=== PATIENT | male | born 1955 | race Caucasian/White ===

== ENCOUNTER 2017-02-13 07:00 | Day surgery (SDC) | payer BC ==
[2017-02-12 12:48] VITALS: BMI 25.4
[~2017-02-13 07:00] MED LIST: FLU VACC QS2017-18 36 mo. & older 0.5 ML SYRINGE IM ONE
[2017-02-13 08:55] VITALS: BP 106/72; TEMP 97.2
[2017-02-13 09:58] LABS: CSF, Glucose 56 mg/dl (40-70)
--- OUTSIDE RECORDS SUMMARY | 2017-02-13 10:53 | XMS | Clinical Summary ---
:1955 Author Organization [facility] Address [address] [place] [address] Phone Care Team Providers Name Role Phone Carlos Ny Primary Care Provider tel Allergies No Known Allergies Current Medications Prescription Sig. Disp. Refills Start Date End Date Status simvastatin (ZOCOR) Take 20 mg by Active 20 MG tablet mouth nightly. GLUCOSAMINE/D3/BOSWEL Take by mouth. Active SONJA ANNE-MARIE (OSTEO BI-FLEX, 5-LOXIN, ORAL) MULTIVIT-MIN/FA/LYCOP Take by mouth. Active EN/LUTEIN (CENTRUM SILVER MEN ORAL) UBIDECARENONE (COQ-10 Take by mouth. Active ORAL) ASCORBATE CALCIUM Take by mouth. Active (VITAMIN C ORAL) aspirin (ECOTRIN) 81 Take 81 mg by Active MG enteric coated mouth daily. tablet cyanocobalamin 500 Take 500 mcg by Active MCG tablet mouth daily. tadalafil (CIALIS, Take 20 mg by Active ADCIRCA) 20 mg tablet mouth daily as needed. tadalafil (CIALIS) 5 Take 5 mg by Active MG tablet mouth daily as needed for erectile dysfunction. oxybutynin XL Take 1 tablet (10 30 tablet 11 10/30/2016 10/30/2017 Active (DITROPAN-XL) 10 MG mg total) by 24 hr tablet mouth daily. tadalafil (CIALIS, Take 1 tablet (5 30 tablet 6 01/28/2017 02/27/2017 Active ADCIRCA) 5 MG tablet mg total) by mouth daily as needed for erectile dysfunction for up to 30 days. tadalafil (CIALIS, Take 1 tablet (5 8 tablet 6 01/23/2017 01/31/2017 ADCIRCA) 5 MG tablet mg total) by mouth daily as needed for erectile dysfunction for up to 8 days. Active Problems Problem Noted Date Prostate cancer 09/09/2016 Encounters Date Type Specialty Care Team Description 01/29/2017 Telephone Urology Dulce Mckeon MA 01/28/2017 Telephone Urology Dulce Mckeon MA 01/23/2017 Telephone Urology Dulce Mckeon MA 11/18/2016 Office Visit General Surgery Joseph Mcdermott Visit for wound check MD Steven (Primary Dx) from Last 3 Months Family History Medical History Relation Name Comments Heart disease Father Hypertension Mother Melanoma Mother Relation Name Status Comments Father Mother Alive Social History Tobacco Use Types Packs/Day Years Used Date Former Smoker Quit: 1979 Smokeless Tobacco: Former User Quit: 1982 Alcohol Use Drinks/Week oz/Week Comments Yes 04/07/2007- last drink Sex Assigned at Date Recorded Not on file Last Filed Vital Signs Vital Sign Reading Time Taken Blood Pressure 133/64 09/20/2016 4:04 PM CDT Pulse 93 09/20/2016 4:04 PM CDT Temperature 37.2 C (99 F) 09/20/2016 4:04 PM CDT Respiratory Rate 19 09/20/2016 4:04 PM CDT Oxygen Saturation 96% 09/20/2016 4:04 PM CDT Inhaled Oxygen Concentration - - Weight 90.7 kg (200 lb) 11/18/2016 5:29 PM CDT Height 182.9 cm (6') 11/18/2016 5:29 PM CDT Body Mass Index 27.12 11/18/2016 5:29 PM CDT Plan of Treatment Date Type Specialty Care Team Description 03/05/2017 Office Visit Urology Tomas Horvath MD [address] [facility] [address] [place] [address] [phone] Health Maintenance Due Date Last Done Comments COLONOSCOPY 08/10/2007 INFLUENZA VACCINE 11/18/2016 01/20/2015, 02/13/2014, 02/15/2013 Implants Implanted Type Area [place] [employer] Device Expiration Model / Identifier Date Serial / Lot Sepramesh Ip 3x6" - [id number] GRAFTS N/A: Louise CHRISTIANSON 04/16/2017 [id number] / Implanted:Qty: 1 on 09/18/2016 by Tomas Horvath MD Abdomen COMPANY / [id number] Clip Ligtng Hem-[employer]-Ward Endoscpc Aplr [facility] - [id number] Surgical N/A: N/A WECK CLOSURE [id number] / Implanted:09/18/2016 (Quantity not on file) Implants; SYSTEMS / Expanders; Extenders; Surgical Wires Clip Ligtng [employer]-W[employer] Endoscpc Aplr [facility]g - [id number] Surgical N/A: N/A WECK CLOSURE [id number] / Implanted:09/18/2016 (Quantity not on file) Implants; SYSTEMS / Expanders; Extenders; Surgical Wires Amniofix Amniotic Membrane Allograft - [id number] - [id number] Urological N/A: N/A [employer] 05/21/2021 APS [id number] / Implanted:Qty: 1 on 09/18/2016 by Tomas Horvath MD Implants or INC [id number] / Sets [id number] Results Not on filefrom Last 3 Months Insurance Payer Benefit Plan / Group Subscriber ID Type Phone Address BCBS BCBS CHOICE PPO/[employer] EMPL PPO [id number] PPO
--- NOTE | 2017-02-13 12:53 | RAD ---
LUMBAR PUNCTURE WITH FLUOROSCOPIC GUIDANCE: Date: 02/13/17 HISTORY: Neuropathy. COMPARISON: None. FINDINGS: Technically successful lumbar puncture. A total of 16 mm of clear CSF was collected. Opening pressur e was 16 mm of water. Technically successful lumbar puncture. Patient's back was evaluated. The L2-L3 level was deemed cassy ropriate. Skin was prepped and draped in the sterile fashion. 1% lidocaine, buffered with sodium bic arbonate, was used for local anesthesia. Under fluoroscopic guidance, a 22 gauge spinal needle was a dvanced in the CSF space. Opening pressure was 16 mm of water. A total of 16 mL of clear CSF was col lected. The patient tolerated the procedure well. No immediate or postprocedure complications. EXPOSURE: 0.4 minutes. 155.3 mGy*cm\S\2. IMPRESSION: Technically successful lumbar puncture. POS: CORBIN
== END 2017-02-13 10:25 | disposition home or self-care (01) ==
LOC: RAD 07:00
PROVIDERS: ATTEND Radiology Diagnostic Radiology
PROC: 009U3ZX Drainage of Spinal Canal, Percutaneous Approach, Diagnostic (ICD-10-PCS; principal; 2017-02-13)
DX: G60.9 Hereditary and idiopathic neuropathy, unspecified (principal)
CPT/HCPCS: 62270; 82945; 84157; 84165; 89051

== ENCOUNTER 2017-03-27 07:31 | Outpatient (CLI) | payer BC ==
--- NOTE | 2017-03-27 08:59 | CT ---
CT OF THE ABDOMEN AND PELVIS WITH AND WITHOUT IV CONTRAST: Date: 03/27/17 INDICATION: Prostate restaging examination after prostate surgery. Patient also has a history of prior hernia rep air. TECHNIQUE: Multiple CT images were obtained of the abdomen and pelvis with and without IV contrast utilizing a C T urogram protocol. FINDINGS: There is postsurgical change of an anterior abdominal wall hernia repair and prostate resection. No pathologically enlarged lymph nodes are evident. No renal or ureteral calculus is noted. No gross urothelial lesion is identified. No solid renal lesi on is identified. There are mild vascular calcifications involving the abdominopelvic vasculature. There is some mild subsegmental volume loss within both lung bases likely related to supine positioni ng and diminished inspiration. The liver, spleen, pancreas, and adrenal glands are normal appearing. The rectum and perirectal soft tissues appear within normal limits. There is a mild amount of retaine d stool within the colon. There is a normal appendix in the right lower quadrant of the abdomen. Smal l bowel is of normal caliber. Osseous Structures: There are small suspected bone islands within the left pubic body and left superior pubic ramus. Ther e is scattered degenerative change and osteoarthritic change. No suspicious focal osseous lesion is d emonstrated. IMPRESSION: 1. No evidence for regional or metastatic disease within the abdomen or pelvis. 2. Postsurgical change of anterior abdominal wall hernia repair and prostatectomy. 3. No gross urothelial lesion or solid renal lesion is demonstrated. 4. Small sclerotic lesions within the left pubic body and left superior pubic ramus demonstrate some densities similar to cortex with alta thorn edges is most suspicious for small bone islands. No susp icious osteoblastic lesion is evident. POS: PENNY
[2017-03-27] MEDS ORDERED: Iopamidol 370 76% 100 ML VIAL ONE (11:31)
== END 2017-03-27 07:32 | disposition home or self-care (01) ==
LOC: CT 07:31
PROVIDERS: ATTEND Radiology Radiation Oncology
DX: C61 Malignant neoplasm of prostate (principal); M89.9 Disorder of bone, unspecified; Z98.890 Other specified postprocedural states; Z90.79 Acquired absence of other genital organ(s)
CPT/HCPCS: 74178

== ENCOUNTER 2017-04-07 10:00 | Outpatient (CLI) | payer BC ==
--- NOTE | 2017-04-07 14:38 | NM ---
RADIONUCLIDE BONE SCAN: History: Prostate cancer. Initial staging. FINDINGS: Heterogeneous uptake of radiotracer is present throughout the skeleton. Uptake at the shoulders, ster noclavicular joints, hips, knees and feet have the appearance of degenerative changes. Urinary bladde r predominately obscures the pubic symphysis. Photopenic defect at the mouth has the appearance of de ntures. IMPRESSION: 1. Osteoarthritic changes. No scintigraphic evidence of skeletal metastases. POS: PENNY
== END 2017-04-07 10:01 | disposition home or self-care (01) ==
LOC: NM 10:00
PROVIDERS: ATTEND Radiology Radiation Oncology
DX: C61 Malignant neoplasm of prostate (principal); M19.91 Primary osteoarthritis, unspecified site
CPT/HCPCS: 78306; A9503

== ENCOUNTER 2018-01-15 10:16 | Outpatient (CLI) | payer BC | END 2018-01-15 10:17 | disposition home or self-care (01) | LOC: CTENTCT 10:16 | PROVIDERS: ATTEND Specialist | DX: J01.81 Other acute recurrent sinusitis (principal) | CPT/HCPCS: 70486 ==

== ENCOUNTER 2018-03-19 09:21 | Day surgery (SDC) | payer BC ==
[2018-03-18 08:44] VITALS: BMI 29.8
[2018-03-19] MEDS ORDERED: Oxymetazoline HCl 0.05% ( 15 ML ) ONE ×2 (09:54→10:17)
[2018-03-19] MEDS ORDERED: Fentanyl 100 MCG/2 ML VIAL ONE ×3 (10:15→12:02)
[2018-03-19] MEDS ORDERED: Lidocaine 1% w/Epinephrine 1:100K 30 ML VIAL ONE (10:16)
[2018-03-19] MEDS ORDERED: Bacitracin Zinc Ointment 30 gm TUBE ONE (10:17)
[2018-03-19] MEDS ORDERED: PROPOFOL 200 MG/20 ML VIAL ONE (11:15)
[2018-03-19] MEDS ORDERED: Glycopyrrolate 0.2 MG/ML 5 ML SYRINGE ONE (11:15)
[2018-03-19] MEDS ORDERED: ePHEDrine/0.9% NaCl/PF SYRINGE 50 mg/10 ml ONE (11:15)
[2018-03-19] MEDS ORDERED: Dexamethasone 20 MG/5 ML VIAL ONE (11:15)
[2018-03-19] MEDS ORDERED: Ondansetron PF 4 MG/2 ML Vial ONE (11:15)
[2018-03-19] MEDS ORDERED: Lidocaine 1% PF 5 ML VIAL ONE (11:15)
--- NOTE | 2018-03-19 22:43 | EKG ---
Test Reason : PREOP Blood Pressure : / mmHG Vent. Rate : 071 BPM Atrial Rate : 071 BPM P-R Int : 162 ms QRS Dur : 102 ms QT Int : 408 ms P-R-T Axes : 023 000 015 degrees QTc Int : 443 ms Normal sinus rhythm Minimal voltage criteria for LVH, may be normal variant Borderline ECG When compared with ECG of 14-JUN-2004 22:16, No significant change was found Confirmed by KEITH LANGSTON, . SLuiz (4) on 03/19/2018 10:43:03 PM Referred By: MATTHEW Confirmed By:DR. Francisco PARKER MD
--- NOTE | 2018-03-22 08:42 | OP ---
DATE OF PROCEDURE: 03/19/2018 PREOPERATIVE DIAGNOSES: Deviated septum, hypertrophic inferior turbinates, chronic sinusitis, recurrent sinusitis, facial pain. POSTOPERATIVE DIAGNOSES: Deviated septum, hypertrophic inferior turbinates, chronic sinusitis, recurrent sinusitis, facial pain. PROCEDURES PERFORMED: Bilateral nasal endoscopy with maxillary antrostomy, bilateral nasal endoscopy with total ethmoidectomy, bilateral nasal endoscopy with frontal sinusotomy, bilateral nasal endoscopy with sphenoidotomy, septoplasty, and bilateral nasal endoscopy with submucosal resection of inferior turbinates. DESCRIPTION OF PROCEDURE: After consent was obtained, the patient was identified, brought to the operating room, and placed on the operating room table in the supine position. Consent was obtained, notifying the patient of the possibility of additional infections, bleeding, brain injury, and eye/orbital injury. The patient was placed on the operating room table, and general endotracheal anesthesia and intravenous access was obtained. The patient was then positioned, prepped and draped for endoscopic sinus surgery. Nasal preparation included trimming nasal vestibular hairs and spraying in topical Afrin. We then placed Afrin topical solution on nasal pledgets and strategically located them intranasally. The perinasal mucosa was injected with 1% lidocaine with 1:100,000 epinephrine in the submucoperichondrial plane of the septum, lateral nasal wall, and anterior to the uncinate. The patient was then prepped and draped in a sterile fashion and positioned for endoscopic sinus surgery. The uncinate was then identified and the extent of the uncinate was appreciated by out-fracturing the uncinate with the ball-tip probe. We then used the sickle blade to disarticulate the uncinate from the lateral nasal wall. This was then removed with straight biting and upbiting punches with the remaining shrouds of mucosa and bony septum removed with the micro-debrider. The natural os of the maxillary sinus was then identified and enlarged with the maxillary punches and back biting forceps. The anterior face of the ethmoid bulla was entered and with the micro-debrider, dissection continued posteriorly to the ground lamella. The limits of dissection included the insertion of the middle turbinate, medial orbital wall, and base of skull. We similarly identified the frontal recess and removed shrouds of bone and debris in that region to obtain patency into the agger nasi region and frontal recess. We then entered the ground lamella and its anteroinferior aspect and proceeded posteriorly, opening the posterior ethmoid air-cell system. Again, the limits of dissection included the base of skull and medial orbital wall. The anterior face of the sphenoid was identified and entered in its extreme anteroinferior aspect. A sphenoid punch was then used to enlarge the sphenoidotomy and no injury to the optic nerve or internal carotid artery occurred. After local anesthesia was infiltrated into the submucoperichondrial plane, a standard Juan incision was made with a #15 blade down to the level of the septal cartilage. The caudal elevator was used to elevate the mucoperichondrium from the underlying cartilage. We then proceeded beyond the bony cartilaginous junction and elevated the bony periosteum as well. Great attention was paid to the spur to prevent rent formation in the septal flap. A transcartilaginous incision was then made, while preserving an adequate dorsal and caudal cartilaginous strut for tip support. The deformed cartilage was removed and disarticulated from the bony cartilaginous junction and maxillary crest. This was placed in saline and would later be crushed and returned to the mucoperichondrial envelope. We then elevated the contralateral periosteum from the bony cartilaginous region and removed the deformed portions of the bone and bony spurs. The cartilage was then crushed and placed back into the mucoperichondrial envelope and the mucosa was re-approximated with a quilting stitch composed of rapidly absorbent gut suture. The [place] incision was also closed with interrupted gut suture. At the completion of the case, [place] splints were placed and suture secured to the caudal septum. Job ID: [id number]
== END 2018-03-19 14:10 | disposition home or self-care (01) ==
LOC: SDC 09:21
PROVIDERS: ATTEND Specialist
PROC: 09TV8ZZ Resection of Left Ethmoid Sinus, Via Natural or Artificial Opening Endoscopic (ICD-10-PCS; principal; 2018-03-19)
PROC: 09TU8ZZ Resection of Right Ethmoid Sinus, Via Natural or Artificial Opening Endoscopic (ICD-10-PCS; principal; 2018-03-19)
PROC: 09BM4ZZ Excision of Nasal Septum, Percutaneous Endoscopic Approach (ICD-10-PCS; principal; 2018-03-19)
DX: J01.81 Other acute recurrent sinusitis (principal); J32.0 Chronic maxillary sinusitis; J34.2 Deviated nasal septum; J34.3 Hypertrophy of nasal turbinates; Z87.891 Personal history of nicotine dependence
CPT/HCPCS: 93005; 93010; 96374; J1100; J2001; J2405; J2704; J3010

== ENCOUNTER 2019-09-21 09:55 | Outpatient (CLI) | payer BC ==
--- NOTE | 2019-09-21 12:09 | BD ---
BONE DENSITOMETRY: Date: 09/21/2019 HISTORY: 64-year-old male for osteoporosis screening Low Vitam D. Steroid therapy. FINDINGS: Lumbar Spine: BMD (g/cm2) L1 1.117 T-Score: 0.4 L2 1.077 T-Score: -0.2 L3 1.122 T-Score: 0.2 L4 1.159 T-Score: 0.6 Total 1.119 T-Score: 0.3 Left Femoral Neck: 0.842 T-Score: -0.7 Total Femur: 1.064 T-Score: 0.2 IMPRESSION: Bone mineral density of the lumbar spine and femoral neck are within normal range. POS: AGW
== END 2019-09-21 09:56 | disposition home or self-care (01) ==
LOC: BICMAMMO 09:55
PROVIDERS: ATTEND Internal Medicine Hematology & Oncology
DX: Z13.820 Encounter for screening for osteoporosis (principal); E55.9 Vitamin D deficiency, unspecified; Z92.241 Personal history of systemic steroid therapy
CPT/HCPCS: 77080

== ENCOUNTER 2022-07-03 15:28 | Inpatient (IN) | payer BC ==
[2022-07-03 16:18] LABS: #Lymphocytes 1.3 thou/uL (1.20-3.40); #Monocytes 0.6 thou/uL (0.11-0.59); %Basophils 0.1 % (0.0-1.0); %Eosinophils 0.2 % (0.0-10.0); %Lymphocytes 10.6 % (21.0-51.0); %Monocytes 5.3 % (0.0-10.0); %Neutrophils 83.9 % (42.0-75.0); Mean Corpuscular HGB CONC 34.5 g/dL (32.0-36.0); Mean Corpuscular Hemoglobin 33.3 pg (27.0-31.0); Mean Corpuscular Volume 96.5 fl (78.0-98.0); Mean Platelet Volume 7.5 fL (7.4-10.4); Platelet Count 209 10x3/uL (130-400); RBC Distribution Width 12.4 % (11.5-14.5); Red Blood Cell (RBC) Count 4.21 mill/uL (4.70-6.10); White Blood Cell (WBC) Count 11.9 10x3/uL (4.8-10.8)
[2022-07-03 16:42] LABS: ALT (SGPT) 21 U/L (8-55); AST (SGOT) 26 U/L (5-34); Albumin 4.6 g/dL (3.4-4.8); Alkaline Phosphatase 45 U/L (40-110); Anion Gap 13 mmol/L (10-20); BUN (Urea Nitrogen) 35 mg/dL (8.4-25.7); Bilirubin, Total 0.5 mg/dL (0.2-1.2); Calc. Creatinine Clearance 0 mL/min (70-130); Calcium 9.6 mg/dL (7.8-10.44); Carbon Dioxide 25 mmol/L (23-31); Chloride 108 mmol/L (98-107); Estimated GFR 100; Globulin 2.6 g/dL (2.4-3.5); Glucose 119 mg/dL (80-115); Lipase 34 U/L (8-78); Potassium 3.8 mmol/L (3.5-5.1); Protein, Total 7.2 g/dL (5.8-8.1); Sodium 142 mmol/L (136-145)
[2022-07-03 17:05] LABS: CKMB 9.9 ng/mL (0-6.6)
[2022-07-03] MEDS ORDERED: Nitroglycerin 2% Ointment 1 INCH/1 GM Packet ONE ×2 (17:12→17:13)
[2022-07-03 17:45] LABS: SARS-CoV-2 NAA Rapid Test Not Detected (NotDetected)
[2022-07-03 20:27] LABS: Troponin I 0.422 ng/mL (< 0.028)
[2022-07-03 20:37] VITALS: BMI 30.2
[2022-07-03] MEDS: Nitroglycerin 2% Ointment 1 INCH/1 GM Packet TOP SCH (22:42)
[2022-07-03 22:53] LABS: Critical Call Chem Troponin I RESULT DECREASING; Troponin I 0.414 ng/mL (< 0.028)
[2022-07-03] MEDS ORDERED: Ondansetron PF 4 MG/2 ML Vial IVP PRN (23:18)
[2022-07-03] MEDS ORDERED: azaTHIOprine 50 MG TAB PO SCH (23:30)
[2022-07-03] MEDS ORDERED: Simvastatin 5 MG TAB PO SCH (23:30)
[2022-07-04 05:11] LABS: #Lymphocytes 1.8 thou/uL (1.20-3.40); #Monocytes 0.5 thou/uL (0.11-0.59); %Basophils 0.1 % (0.0-1.0); %Eosinophils 0.4 % (0.0-10.0); %Lymphocytes 21.9 % (21.0-51.0); %Monocytes 6.4 % (0.0-10.0); %Neutrophils 71.2 % (42.0-75.0); Hemoglobin 12.6 g/dL (14.0-18.0); Hemoglobin A1c 4.7 % (4.0-6.0); Mean Corpuscular HGB CONC 34.1 g/dL (32.0-36.0); Mean Corpuscular Hemoglobin 33.3 pg (27.0-31.0); Mean Corpuscular Volume 97.8 fl (78.0-98.0); Mean Platelet Volume 7.6 fL (7.4-10.4); Platelet Count 166 10x3/uL (130-400); RBC Distribution Width 12.6 % (11.5-14.5); White Blood Cell (WBC) Count 8.4 10x3/uL (4.8-10.8)
[2022-07-04 05:33] LABS: Anion Gap 12 mmol/L (10-20); BUN (Urea Nitrogen) 37 mg/dL (8.4-25.7); Calc. Creatinine Clearance 144 mL/min (70-130); Calcium 8.9 mg/dL (7.8-10.44); Carbon Dioxide 22 mmol/L (23-31); Cardiac Risk 3.7 (Less than 4.5); Chloride 111 mmol/L (98-107); Cholesterol 196 mg/dl (< 200 Desired); Estimated GFR 101; Glucose 93 mg/dL (80-115); HDL Cholesterol 53 mg/dL (>60 Neg Risk); LDL Cholesterol, Calculated 129 mg/dL; Potassium 3.6 mmol/L (3.5-5.1); Sodium 141 mmol/L (136-145); Triglycerides 68 mg/dL (Less than 150)
[2022-07-04] MEDS: azaTHIOprine 50 MG TAB PO SCH ×3 (06:17→20:08)
[2022-07-04] MEDS: Aspirin Chewable 81 MG TAB PO SCH (06:17)
[2022-07-04] MEDS: Nitroglycerin 2% Ointment 1 INCH/1 GM Packet TOP SCH ×2 (06:18→20:08)
[2022-07-04] MEDS: Acetaminophen 325 MG TAB PO PRN ×3 (06:43→22:14)
[2022-07-04] MEDS ORDERED: Heparin 10,000 UNITS/ 10 ML VIAL ONE ×3 (07:47→10:17)
[2022-07-04] MEDS ORDERED: Lidocaine 1% (PF) 30 ML VIAL ONE (07:48)
[2022-07-04] MEDS ORDERED: Midazolam HCl 2 mg/2 ml Vial ONE (08:28)
[2022-07-04] MEDS ORDERED: fentaNYL 50 mcg/mL 1 mL Vial ONE ×2 (08:28→09:24)
[2022-07-04] MEDS ORDERED: Nitroglycerin 4.9 GM Bottle ONE (08:45)
[2022-07-04] MEDS ORDERED: Nitroglycerin 100MG/250ML BOT 250 ML ONE (08:56)
[2022-07-04] MEDS ORDERED: Aspirin 81 mg Enteric Coated Tablet PO SCH (09:00)
[2022-07-04] MEDS ORDERED: PHENYLEPHRINE-NS 100 MCG/ML 10 ML SYRINGE ONE (09:02)
[2022-07-04 09:21] VITALS: BP 123/68
[2022-07-04] MEDS ORDERED: TICAGRELOR 90 MG TABLET ONE (09:24)
[2022-07-04] MEDS ORDERED: Nitroglycerin 50 MG/250 ML BOT 250 ML ONE (09:49)
[2022-07-04] MEDS ORDERED: Sodium Chloride 0.9% 1,000 ML IV SCH (10:30)
[2022-07-04] MEDS ORDERED: Morphine 2 MG/ML VIAL SLOW IVP PRN (10:30)
[2022-07-04] MEDS ORDERED: Nitroglycerin 0.4 MG TAB (25 Tab Bottle) SL PRN (10:30)
[2022-07-04] MEDS ORDERED: Morphine 4 MG/ML VIAL SLOW IVP PRN (10:30)
[2022-07-04] MEDS ORDERED: Iopamidol 370 76% 100 ML VIAL ONE (11:23)
[2022-07-04] MEDS ORDERED: Nitroglycerin 50 MG/250 ML BOT 250 ML IVPB SCH (12:00)
[2022-07-04 15:33] LABS: Troponin I 0.665 ng/mL (< 0.028)
[2022-07-04] MEDS: TICAGRELOR 90 MG TABLET PO SCH (20:08)
[2022-07-04] MEDS ORDERED: Simvastatin 5 MG TAB PO SCH (21:00)
[2022-07-04] MEDS ORDERED: Atorvastatin Calcium 40 MG TAB PO SCH (21:00)
[2022-07-04 22:44] LABS: Troponin I 2.401 ng/mL (< 0.028)
[2022-07-05 03:35] LABS: #Monocytes 0.4 thou/uL (0.11-0.59); #Neutrophils 4.9 thou/uL (1.40-6.50); %Basophils 0.1 % (0.0-1.0); %Eosinophils 0.3 % (0.0-10.0); %Lymphocytes 15.8 % (21.0-51.0); %Monocytes 5.5 % (0.0-10.0); %Neutrophils 78.3 % (42.0-75.0); Hemoglobin 12.2 g/dL (14.0-18.0); Mean Corpuscular HGB CONC 34.2 g/dL (32.0-36.0); Mean Corpuscular Hemoglobin 33.2 pg (27.0-31.0); Mean Corpuscular Volume 97.2 fl (78.0-98.0); Mean Platelet Volume 7.5 fL (7.4-10.4); Platelet Count 136 10x3/uL (130-400); RBC Distribution Width 12.4 % (11.5-14.5); Red Blood Cell (RBC) Count 3.69 mill/uL (4.70-6.10); White Blood Cell (WBC) Count 6.3 10x3/uL (4.8-10.8)
[2022-07-05 03:56] LABS: ALT (SGPT) 18 U/L (8-55); AST (SGOT) 34 U/L (5-34); Albumin 3.7 g/dL (3.4-4.8); Alkaline Phosphatase 38 U/L (40-110); Anion Gap 9 mmol/L (10-20); BUN (Urea Nitrogen) 30 mg/dL (8.4-25.7); Bilirubin, Total 0.6 mg/dL (0.2-1.2); Calc. Creatinine Clearance 142 mL/min (70-130); Calcium 8.9 mg/dL (7.8-10.44); Carbon Dioxide 28 mmol/L (23-31); Chloride 108 mmol/L (98-107); Estimated GFR 101; Globulin 1.9 g/dL (2.4-3.5); Glucose 93 mg/dL (80-115); Potassium 3.7 mmol/L (3.5-5.1); Protein, Total 5.6 g/dL (5.8-8.1); Sodium 141 mmol/L (136-145)
[2022-07-05 08:33] VITALS: TEMP 98.1
[2022-07-05] MEDS: azaTHIOprine 50 MG TAB PO SCH (08:35)
[2022-07-05] MEDS: TICAGRELOR 90 MG TABLET PO SCH (08:35)
[2022-07-05] MEDS: Aspirin Chewable 81 MG TAB PO SCH (08:35)
[2022-07-05] MEDS: Acetaminophen 325 MG TAB PO PRN (08:36)
[2022-07-05] MEDS: Nitroglycerin 2% Ointment 1 INCH/1 GM Packet TOP SCH (08:36)
[2022-07-05] MEDS ORDERED: Metoprolol Tartrate 25 MG TAB PO SCH (09:00)
[2022-07-05] MEDS ORDERED: Aspirin 81 mg Enteric Coated Tablet PO SCH (09:45)
[2022-07-05 09:58] LABS: Troponin I 2.804 ng/mL (< 0.028)
[2022-07-06] MEDS ORDERED: Aspirin 81 mg Enteric Coated Tablet PO SCH (09:00)
== END 2022-07-05 12:12 | disposition home or self-care (01) | DRG 247 ==
LOC: ERS 15:28 → 2SW 17:34 → CCU 07-04 09:58 → OBSVTOIN 07-04 10:43 → CCU 07-04 10:44
PROVIDERS: ADMIT Internal Medicine; ATTEND Internal Medicine
PROC: 027135Z Dilation of Coronary Artery, Two Arteries with Two Drug-eluting Intraluminal Devices, Percutaneous Approach (ICD-10-PCS; principal; 2022-07-04)
PROC: 4A023N7 Measurement of Cardiac Sampling and Pressure, Left Heart, Percutaneous Approach (ICD-10-PCS; 2022-07-04)
PROC: B2151ZZ Fluoroscopy of Left Heart using Low Osmolar Contrast (ICD-10-PCS; 2022-07-04)
PROC: B2111ZZ Fluoroscopy of Multiple Coronary Arteries using Low Osmolar Contrast (ICD-10-PCS; 2022-07-04)
DX: I21.4 Non-ST elevation (NSTEMI) myocardial infarction (principal); G61.81 Chronic inflammatory demyelinating polyneuritis; Z20.822 Contact with and (suspected) exposure to COVID-19; I25.10 Atherosclerotic heart disease of native coronary artery without angina pectoris; E78.2 Mixed hyperlipidemia; I87.2 Venous insufficiency (chronic) (peripheral); Z87.891 Personal history of nicotine dependence; Z85.46 Personal history of malignant neoplasm of prostate; Z82.49 Family history of ischemic heart disease and other diseases of the circulatory system; Z79.899 Other long term (current) drug therapy; Z79.82 Long term (current) use of aspirin
CPT/HCPCS: 36415; 36416; 71045; 80048; 80053; 80061; 82553; 83036; 83690; 84484; 85025; 85347; 92928; 92929; 93005; 93010; 93458; 94760; 96372; 99152; 99153; C1725; C1769; C1874; C1887; C9600; C9601; G0378; J1644; J1650; J2001; J2250; J2270; J3010; J7050; J7500; Q9967; U0002

== ENCOUNTER 2022-11-27 14:14 | Outpatient (CLI) | payer MEDICARE, BC | END 2022-11-27 14:15 | disposition home or self-care (01) | LOC: BICMAMMO 14:14 | PROVIDERS: ATTEND Internal Medicine Hematology & Oncology | DX: N64.4 Mastodynia (principal) | CPT/HCPCS: 77066; G0279 ==